=== PATIENT | female | born 1940 | race Caucasian/White ===

== ENCOUNTER 2025-01-11 10:22 | Emergency (ER) | payer MEDICARE ==
[2025-01-11 10:42] LABS: #Basophils Less than 0.03 10x3/uL (0.0-0.2); #Eosinophils Less than 0.03 10x3/uL (0.0-0.5); #Monocytes 0.57 10x3/uL (0.0-1.1); #Neutrophils 4.57 10x3/uL (1.5-8.4); %Basophils 0.1 % (0.0-2.0); %Eosinophils 0.1 % (0.0-6.0); %Lymphocytes 28.1 % (18.0-47.0); %Monocytes 7.9 % (0.0-10.0); %Neutrophils 63.5 % (40.0-75.0); Hematocrit 36.0 % (34.9-44.5); Hemoglobin 12.4 g/dL (12.0-15.5); Mean Corpuscular Hemoglobin 28.4 pg (27.0-33.0); Mean Corpuscular Volume 82.4 fL (81.6-98.3); Platelet Count 289 10x3/uL (150-450); Red Blood Cell (RBC) Count 4.37 10x6/uL (3.90-5.03); White Blood Cell (WBC) Count 7.20 10x3/uL (3.5-10.5)
[2025-01-11] MEDS ORDERED: niCARdipine 25 MG/10 ML SDV ONE ×2 (10:51→17:48)
[2025-01-11 10:56] LABS: INR-International Normal Ratio 1.1; PTT 25.7 sec (22.0-33.0); Prothrombin Time 11.7 sec (9.5-12.1)
[2025-01-11 10:58] LABS: ALT (SGPT) 18 U/L (Less than 34); AST (SGOT) 29 U/L (11-34); Albumin 3.1 g/dL (3.1-4.5); Alkaline Phosphatase 83 U/L (40-110); Anion Gap 17 mmol/L (10-20); BUN (Urea Nitrogen) 4 mg/dL (9.8-20.1); Bilirubin, Total 1.2 mg/dL (0.3-1.2); CK (CPK) 35 U/L (29-168); Calc. Creatinine Clearance 0 mL/min (70-130); Calcium 8.2 mg/dL (7.8-10.44); Carbon Dioxide 26 mmol/L (23-31); Chloride 93 mmol/L (98-107); Globulin 3.8 g/dL (2.4-3.5); Glucose 132 mg/dL (83-110); Potassium 2.7 mmol/L (3.5-5.1); Sodium 133 mmol/L (136-145)
[2025-01-11 11:04] LABS: Troponin I 0.061 ng/mL (< 0.028)
[2025-01-11 11:38] LABS: Magnesium 1.3 mg/dL (1.6-2.6)
[2025-01-11] MEDS ORDERED: Potassium Chloride 20 MEQ (100 mL) BAG ONE ×2 (11:46→13:53)
[2025-01-11] MEDS ORDERED: Magnesium 2 GM/50 ML BAG (IN WATER) ONE (12:06)
[2025-01-11] MEDS ORDERED: Iopamidol 370 76% 100 ML VIAL ONE (13:55)
[2025-01-11 15:39] LABS: Glucose, Urine (Dipstick) Normal (Negative); Leukocyte 500 (Negative); Protein, Urine (Dipstick) 30 mg/dl (Neg-Trace); Specific Gravity, Urine 1.005 (1.005-1.030)
[2025-01-11 15:48] LABS: Bacteria/HPF 1+ HPF (None Seen); CAUTI Indications for Culture Alt mental st,lethar; RBC/HPF 0-3 HPF (0-3); WBC/HPF 21-50 HPF (0-3)
[2025-01-11 15:49] LABS: Urine Culture Reflex Yes Yes
== END 2025-01-11 19:00 ==
LOC: CSHERS 10:22
DX: I62.9 Nontraumatic intracranial hemorrhage, unspecified (principal); I10 Essential (primary) hypertension; R41.82 Altered mental status, unspecified; R79.89 Other specified abnormal findings of blood chemistry; E87.6 Hypokalemia; E83.42 Hypomagnesemia; I63.89 Other cerebral infarction; R00.0 Tachycardia, unspecified; I25.10 Atherosclerotic heart disease of native coronary artery without angina pectoris; E11.9 Type 2 diabetes mellitus without complications
CPT/HCPCS: 36415; 36416; 70450; 70496; 70498; 80053; 81001; 82550; 83735; 84484; 85025; 85610; 85730; 87086; 93005; J3475; J3480